=== PATIENT | male | born 1975 | race Two or more races ===

== ENCOUNTER 2021-07-30 18:22 | Emergency (ER) | payer SELFPAY ==
[~2021-07-30] VITALS: Ht 167.6 cm; Wt 71.2 kg
[2021-07-30 19:22] LABS: Basophils # (auto) 0.1 10 ^3/uL (0-0.2); Eosinophils # (auto) 0.2 10 ^3/uL (0-0.8); Eosinophils % (auto) 2.6 % (0.0-7.0); Hematocrit 43.1 % (41.0-53.0); Hemoglobin 14.3 g/dL (13.5-17.5); INR 1.21 (0.9-1.15); Lymphocytes # (auto) 2.2 10 ^3/uL (0.4-5.4); Lymphocytes % (auto) 24.1 % (10.0-50.0); Mean Corpuscular Hemoglobin 30.3 pg (28.0-32.0); Mean Corpuscular Hgb Conc. 33.3 g/dL (32.0-36.0); Mean Corpuscular Volume 91.1 fL (80.0-100.0); Monocytes # (auto) 0.5 10 ^3/uL (0-1.3); Monocytes % (auto) 5.6 % (0.0-12.0); Neutrophils # (auto) 6.1 10 ^3/uL (1.6-8.6); Neutrophils % (auto) 66.7 % (37.0-80.0); Nucleated Red Blood Cells % 0.1 %; Partial Thromboplastin Time 22.5 sec (23.6-33.0); Red Blood Cells 4.73 10^6/uL (4.5-5.90); Red Cell Distribution Width 12.6 % (11.8-14.3); White Blood Cell 9.2 10^3/uL (4.4-10.8)
[2021-07-30 19:30] LABS: Albumin 3.7 g/dL (3.4-5.0); Anion Gap 11 (5-15); Blood Urea Nitrogen 16 mg/dL (7-18); Calcium 8.1 mg/dL (8.5-10.1); Carbon Dioxide 22 mmol/L (21-32); Chloride 109 mmol/L (98-107); Glucose 98 mg/dL (74-106); Magnesium 2.2 mg/dL (1.6-2.6); Potassium 3.5 mmol/L (3.5-5.1); Sodium 142 mmol/L (136-145)
[2021-07-30 19:32] LABS: Alanine Aminotransferase 42 U/L (16-61); Aspartate Aminotransferase 31 U/L (15-37); BUN/Creatinine Ratio 15.7; GFR African American 102 mL/min; GFR Non-African American 84 mL/min
[2021-07-30 19:35] LABS: Alkaline Phosphatase 61 U/L (45-117); Bilirubin, Total 0.2 mg/dL (0.2-1.0); Total Protein 7.3 g/dL (6.4-8.2)
[2021-07-30 22:15] VITALS: BP 156/78
== END 2021-07-30 22:19 | disposition home or self-care (01) ==
LOC: ER 18:25
DX: H81.13 Benign paroxysmal vertigo, bilateral (principal)
CPT/HCPCS: 36415; 70450; 71045; 80053; 83735; 84484; 85025; 85610; 85730; 93005